=== PATIENT | male | born 1950 ===

== ENCOUNTER 2017-08-10 14:15 | Inpatient (IN) | payer MEDICARE, OTHER ==
[~2017-08-10] VITALS: Ht 162.6 cm; Wt 63.5 kg
[2017-08-10] MEDS ORDERED: IV NORMAL SALINE 1000 ML BAG IV ONE (15:00)
[2017-08-10] MEDS ORDERED: HYDR-3980 PO (15:19)
[2017-08-10 15:20] LABS: BASOPHILS % (AUTO) 0.4 % (0.0-2.0); EOSINOPHILS % (AUTO) 0.3 % (0.0-7.0); HEMATOCRIT 30.5 % (36.7-47.1); HEMOGLOBIN 11.1 g/dL (12.5-16.3); LYMPHOCYTES # (AUTO) 0.6 K/uL (20.0-40.0); LYMPHOCYTES % (AUTO) 9.2 % (20.5-51.5); MEAN CORPUSCULAR HEMOGLOBIN 34.9 uug (23.8-33.4); MEAN CORPUSCULAR HGB CONC 36 g/dL (32.5-36.3); MEAN CORPUSCULAR VOLUME 96.2 fL (73.0-96.2); MONOCYTES # (AUTO) 0.6 K/uL (2.0-10.0); MONOCYTES % (AUTO) 8.4 % (0.0-11.0); NEUTROPHILS # (AUTO) 5.6 K/uL (1.8-8.9); NEUTROPHILS % (AUTO) 81.7 % (38.5-71.5); PLATELET COUNT (AUTO) 63 K/uL (152-348); RED BLOOD CELL COUNT(AUTO) 3.17 MIL/uL (4.06-5.63); WHITE BLOOD COUNT (AUTO) 6.8 K/uL (3.6-10.2)
[2017-08-10 15:32] LABS: CARBON DIOXIDE 26 mmol/L (21-32); CHLORIDE 103 mmol/L (98-107); CREATININE 0.6 mg/dL (0.6-1.3); GLUCOSE 99 mg/dL (74-106); POTASSIUM 3.4 mmol/L (3.5-5.1); UREA NITROGEN, BLOOD 17 mg/dL (7-18)
[2017-08-10 15:38] LABS: ALANINE AMINOTRANSFERASE 19 U/L (16-63); ALKALINE PHOSPHATASE 137 U/L (50-136); ASPARTATE AMINOTRANSFERASE 27 U/L (15-37); BILIRUBIN,DIRECT 0.9 mg/dL (0.0-0.2); LIPASE 84 U/L (73-393); TOTAL PROTEIN, SERUM 6.6 g/dL (6.4-8.2)
[2017-08-10 15:59] LABS: BAND % (MANUAL) 4 % (0-10); LYMPHOCYTES % (MANUAL) 8 % (20-40); MONOCYTES % (MANUAL) 12 % (2-10); NEUTROPHILS % (MANUAL) 76 % (42-75)
[2017-08-10] MEDS ORDERED: ONDANSETRON 4 MG/2 ML VIAL ONE ×2 (16:41→19:32)
[2017-08-10] MEDS ORDERED: MORPHINE SULFATE 2 MG/1 ML DISP.SYRIN ONE (16:41)
[2017-08-10] MEDS ORDERED: ONDANSETRON IV *ER 4 MG/2 ML VIAL IV ONE (16:45)
[2017-08-10] MEDS ORDERED: MORPHINE SULFATE 2 MG/1 ML DISP.SYRIN IV ONE (16:45)
[2017-08-10 17:00] LABS: *BLOOD, URINE 3+ (NEGATIVE); *CLARITY,URINE SLIGHTLY CLOUDY (CLEAR); *COLOR,URINE YELLOW (YELLOW); *KETONES,URINE NEGATIVE (NEGATIVE); *PROTEIN,URINE 1+ (NEGATIVE); *UROBILINOGEN,URINE >=8.0 E.U./dl (NORMAL); LEUKOCYTE ESTERASE ,URINE NEGATIVE (NEGATIVE); NITRITE, URINE NEGATIVE (NEGATIVE); PH,URINE 6.5 (5.0-8.0); UGLUCOSE NEGATIVE (NEGATIVE)
[2017-08-10 17:06] LABS: *BILIRUBIN,URIN 2+ (NEGATIVE)
[2017-08-10 17:07] LABS: BACTERIA,URINE MANY /HPF (NONE SEEN); RBC,URINE 20-50 /HPF (0-3); SQUAMOUS EPITHELIAL CELL,UR FEW /HPF (NONE SEEN); WBC,URINE 0-3 /HPF (0-3)
[2017-08-10] MEDS ORDERED: NITROFURANTOIN/NITROFURAN MAC 100 MG CAPSULE PO ONE (17:15)
[2017-08-10] MEDS ORDERED: NITROFURANTOIN/NITROFURAN MAC 100 MG CAPSULE ONE (17:21)
--- NOTE | 2017-08-10 17:35 | NUR ---
Patient is eating dinner tray with good appetite. Patient is AOx4, and is aware that he is going back to his private residence/home via [facility] ambulance at around 2030
--- NOTE | 2017-08-10 19:02 | NUR ---
[facility], SBAR to NATI Gongora
--- NOTE | 2017-08-10 19:12 | NUR ---
REPORT RECEIVED FROM NATI VILLAFANA. LAB AND XRAY RESULTS HAVE BEEN REVIEWED. PT IN BED. CONDUCTED SHIFT CHANGE ASSESSMENT. PT IS A&OX4. BREATH SOUNDS ARE REGULAR AND UNLABORED. NO SIGNS OR SYMPTOMS OF DISTRESS WITNESSED BY NURSE OR EXPRESSED BY PT AT THIS TIME.
--- NOTE | 2017-08-10 19:15 | NUR ---
PT BEGAN COMPLAINING OF LT LOW BACK PAIN. MD BILLS MADE AWARE.
--- NOTE | 2017-08-10 19:25 | NUR ---
PT TRANSPORT ARRIVED, BUT CANCELLED BY MD BILLS.
[2017-08-10] MEDS ORDERED: ONDANSETRON 4 MG/2 ML VIAL IV ONE (19:30)
[2017-08-10] MEDS ORDERED: MORPHINE SULFATE 4 MG/1 ML DISP.SYRIN IV ONE (19:30)
[2017-08-10] MEDS ORDERED: MORPHINE SULFATE 4 MG/1 ML DISP.SYRIN ONE (19:32)
--- NOTE | 2017-08-10 19:32 | NUR ---
PT IN ROUTE TO CT IN [facility] WITH TRANSPORTER.
--- NOTE | 2017-08-10 22:40 | NUR ---
REPORT GIVEN TO TELEMETRY NURSE, NATI FERNANDEZ.
[2017-08-10] MEDS ORDERED: HYDROCODONE/APAP 10-325 MG TABLET PO PRN (22:45)
[2017-08-10] MEDS ORDERED: HYDROCODONE/APAP 5-325MG TABLET PO PRN (22:45)
[2017-08-10] MEDS ORDERED: IV 1/2NS 1000 ML 1,000 ML IV PRN (22:45)
[2017-08-10] MEDS ORDERED: Z GUARD REMEDY PASTE 57 GM TUBE TOP PRN (22:45)
[2017-08-10] MEDS ORDERED: MAGNESIUM HYDROXIDE 30 ML LIQUID UDC PO PRN (22:45)
[2017-08-10] MEDS ORDERED: ONDANSETRON 4 MG/2 ML VIAL IV PRN (22:45)
[2017-08-10] MEDS ORDERED: POTASSIUM CHLORIDE 20 MEQ TAB.PRT.SR PO ONE (23:15)
--- NOTE | 2017-08-10 23:30 | NUR ---
[facility], under care of Dr. SORENSEN Belongs List completed
--- NOTE | 2017-08-10 23:45 | NUR ---
PATIENT ADMITTED IN MED SURG FLOOR UNDER THE CARE OF DR. SORENSEN, BELONGING LIST DONE.
[2017-08-11] VITALS: BP 150/69
[2017-08-11] MEDS: IV NS 1000 ML 1,000 ML IV SCH ×2 (01:25→16:36)
[2017-08-11] MEDS: MORPHINE SULFATE 4 MG/1 ML DISP.SYRIN IV PRN (05:09)
[2017-08-11 06:00] VITALS: BP 138/68
[2017-08-11 06:26] LABS: BASOPHILS % (AUTO) 0.1 % (0.0-2.0); EOSINOPHILS % (AUTO) 0.1 % (0.0-7.0); HEMATOCRIT 29.2 % (36.7-47.1); HEMOGLOBIN 10.6 g/dL (12.5-16.3); LYMPHOCYTES # (AUTO) 0.6 K/uL (20.0-40.0); LYMPHOCYTES % (AUTO) 7.3 % (20.5-51.5); MEAN CORPUSCULAR HEMOGLOBIN 34.6 uug (23.8-33.4); MEAN CORPUSCULAR HGB CONC 36 g/dL (32.5-36.3); MEAN CORPUSCULAR VOLUME 95.5 fL (73.0-96.2); MONOCYTES # (AUTO) 0.6 K/uL (2.0-10.0); MONOCYTES % (AUTO) 6.6 % (0.0-11.0); NEUTROPHILS # (AUTO) 7.3 K/uL (1.8-8.9); NEUTROPHILS % (AUTO) 85.9 % (38.5-71.5); PLATELET COUNT (AUTO) 62 K/uL (152-348); RED BLOOD CELL COUNT(AUTO) 3.06 MIL/uL (4.06-5.63); WHITE BLOOD COUNT (AUTO) 8.5 K/uL (3.6-10.2)
[2017-08-11 06:45] LABS: CARBON DIOXIDE 23 mmol/L (21-32); CHLORIDE 104 mmol/L (98-107); CREATININE 0.6 mg/dL (0.6-1.3); GLUCOSE 100 mg/dL (74-106); MAGNESIUM 1.5 mg/dL (1.8-2.4); PHOSPHOROUS 2.7 mg/dL (2.5-4.9); POTASSIUM 3.5 mmol/L (3.5-5.1); UREA NITROGEN, BLOOD 15 mg/dL (7-18)
--- NOTE | 2017-08-11 06:50 | NUR ---
PATIENT ALERT ORIENTED, NO CHEST PAIN, NO SOB NOTED, PATIENT HAS SLIGHT ELEVATED TEMP OF 100.2 GIVEN COOLING MEASURES AND TYLENOL, NO S/S OF DISTRESS, CONT TO MONITOR.
[2017-08-11] MEDS: ACETAMINOPHEN 325 MG TABLET PO PRN (06:55)
[2017-08-11 07:03] LABS: LYMPHOCYTES % (MANUAL) 7 % (20-40); MONOCYTES % (MANUAL) 7 % (2-10); NEUTROPHILS % (MANUAL) 86 % (42-75)
[2017-08-11] MEDS: MAGNESIUM SULFATE/D5W 100 ML IV SCH ×2 (09:08→10:21)
[2017-08-11] MEDS: CEFTRIAXONE 1 G in IV DEXTROSE 5% 50 ML IV SCH (09:36)
[2017-08-11] MEDS ORDERED: IOHEXOL 300MG/ML 100 ML INFUS..BTL ONE (09:51)
[2017-08-11] MEDS ORDERED: IV NORMAL SALINE 100 ML ONE (09:51)
[2017-08-11] MEDS ORDERED: SWABABLE VALVE TRANSFER SET EA MC ONE (09:51)
[2017-08-11] MEDS ORDERED: BARIUM SULFATE 450 ML ORAL.SUSP ONE (09:51)
[2017-08-11 11:08] VITALS: BP 121/60
[2017-08-11] MEDS ORDERED: MAGNESIUM HYDROXIDE 30 ML LIQUID UDC PO PRN (11:45)
[2017-08-11] MEDS ORDERED: MAGNESIUM SULFATE/D5W 100 ML IV SCH ×2 (11:45→12:15)
[2017-08-11] MEDS ORDERED: POTASSIUM CHLORIDE 20 MEQ TAB.PRT.SR PO ONE (11:45)
[2017-08-11 15:10] VITALS: BP 127/67
--- NOTE | 2017-08-11 19:00 | NUR ---
RECEIVED PATIENT IN BED ALERT ORIENTED, NO SOB NO CHEST PAIN, CONT ON PAIN MANAGEMENT, VOIDING WITH CUATE COLOR URINE, IN MODERATE AMOUNT, KEPT COMFORTABLE.
[2017-08-11 19:28] VITALS: BP 142/92
[2017-08-11] MEDS: DOCUSATE SODIUM 100 MG CAPSULE PO SCH (20:38)
[2017-08-12] MEDS: MORPHINE SULFATE 4 MG/1 ML DISP.SYRIN IV PRN ×4 (00:07→18:41)
[2017-08-12] MEDS: IV NS 1000 ML 1,000 ML IV SCH ×2 (01:40→15:00)
--- NOTE | 2017-08-12 02:01 | NUR ---
PATIENT IV HYDRATION NOT CHANGES AT THIS TIME, TOO CLOSE FROM PREVIOUS ADMINISTRATION. Addendum: 08/12/17 at 0541 by MIR LINARES RN IV HYDRATION WAS NOT GIVEN OR IV WAS NOT CHANGE DUE TO TOO CLOSE FROM PREVIOUS ADMINISTRATION.
[2017-08-12 04:00] VITALS: BP 140/58
--- NOTE | 2017-08-12 05:41 | NUR ---
PATIENT SLEPT ON AND OFF, CONT ON PAIN MANAGEMENT OF THE LOWER BACK, KEPT CLEAN AND DRY. PATIENT VOIDING WITH YELLOW CUATE COLOR URINE IN MODERATE AMOUNT, NO SOB NO CHEST PAIN NOTED, CALL LIGHT WITHIN REACH. CONT TO MONITOR.
--- NOTE | 2017-08-12 08:00 | NUR ---
AWAKE ORTX2 COOPERATE WELL NO PAIN OR SOB AT THIS TIME ON FALL /ASPIRATION PRECAUTION BED ALARM ON AND CALL LIGHT WITHIN REACH EAT BREAKFAST WITH GOOD APPETITE
[2017-08-12] MEDS: ACETAMINOPHEN 325 MG TABLET PO PRN (08:17)
[2017-08-12] MEDS: CEFTRIAXONE 1 G in IV DEXTROSE 5% 50 ML IV SCH (09:20)
[2017-08-12 11:32] VITALS: BP 128/59
[2017-08-12 15:10] VITALS: BP 117/85
--- NOTE | 2017-08-12 17:30 | NUR ---
D/C TO [facility] WITH ORDER WAS EXPLAINED TO PATIENT AND NEED TO F/U WITH OWN PMD CONTINUE HOME MEDICINE AND EDUCATION PK GAVE UNDERSTAND AND SIGNS D/C SHEET HL WAS DISCONTINUE PRIOR D/C TO [facility] TODAY
[2017-08-12] MEDS ORDERED: MAGN400T6 PO (17:49)
[2017-08-12] MEDS ORDERED: SPIR25TA PO (17:49)
[2017-08-12] MEDS ORDERED: DOCU100C36 PO (17:49)
[2017-08-12] MEDS ORDERED: AMYL1CAP54 PO (17:49)
[2017-08-12] MEDS ORDERED: LEVO500T2 PO (17:49)
[2017-08-12] MEDS ORDERED: MULT1TAB73 PO (17:49)
--- NOTE | 2017-08-12 18:30 | NUR ---
[facility] LEHMAN WAS CALL STATE THEY WILL PICK HIM UP AT 1930PM TODAY AND PATIENT WAS INFORM
--- NOTE | 2017-08-12 19:20 | NUR ---
Received patient awake, watching TV at this time. Denies any pain/discomforts. Patient expressed excitement to go home. VS stable. Set for discharge.
[2017-08-12 20:00] VITALS: BP 140/75
[2017-08-12] MEDS: DOCUSATE SODIUM 100 MG CAPSULE PO SCH (20:25)
--- NOTE | 2017-08-12 20:57 | NUR ---
Discharged to [facility] and [facility] via [employer]. Discharged instruction given and verbalized understanding. VS stable. Denies any pain/discomforts. Not in distress.
[2017-08-13] MEDS ORDERED: LEVOFLOXACIN 500 MG TABLET PO SCH (06:00)
== END 2017-08-12 20:58 | disposition home health service (06) | DRG 871 ==
LOC: ER 14:19 → MED 23:25
PROVIDERS: ADMIT Internal Medicine; ATTEND Internal Medicine
DX: A41.59 Other Gram-negative sepsis (principal); E43 Unspecified severe protein-calorie malnutrition; D68.59 Other primary thrombophilia; D69.6 Thrombocytopenia, unspecified; K86.2 Cyst of pancreas; R18.8 Other ascites; K76.6 Portal hypertension; E83.42 Hypomagnesemia; K86.1 Other chronic pancreatitis; N39.0 Urinary tract infection, site not specified; E87.1 Hypo-osmolality and hyponatremia; J98.11 Atelectasis; K74.60 Unspecified cirrhosis of liver; E86.0 Dehydration; R65.20 Severe sepsis without septic shock; B96.1 Klebsiella pneumoniae [K. pneumoniae] as the cause of diseases classified elsewhere; Z16.11 Resistance to penicillins; Z68.24 Body mass index [BMI] 24.0-24.9, adult; Z90.49 Acquired absence of other specified parts of digestive tract; M51.36 Other intervertebral disc degeneration, lumbar region; D64.9 Anemia, unspecified; Z74.09 Other reduced mobility; E87.6 Hypokalemia; G89.29 Other chronic pain; I70.0 Atherosclerosis of aorta
CPT/HCPCS: 36415; 71045; 74160; 82378; 83605; 83690; 83735; 84100; 85025; 86301; 87040; 87077; 87086; 93005; A4663; J0696; J2270; J2405; J3475; J3490; J7030; J7060; Q9951; Q9967